=== PATIENT | female | born 1950 | race Hispanic/Latino ===

== ENCOUNTER → 2018-01-05 | Outpatient (CLI) | payer MEDICARE, OTHER | END | disposition home or self-care (01) | LOC: RAH 08:31 | PROVIDERS: ATTEND Internal Medicine | DX: K76.0 Fatty (change of) liver, not elsewhere classified (principal); R16.0 Hepatomegaly, not elsewhere classified | CPT/HCPCS: 76700; 76856 ==

== ENCOUNTER → 2020-05-27 | Outpatient (CLI) | payer OTHER ==
[~2020-05-27] VITALS: Ht 144.8 cm; Wt 101.6 kg
[~2020-05-27] MED LIST: REGADENOSON 0.4 MG/5 ML PF SYG IVP SCH
== END | disposition home or self-care (01) ==
LOC: SHCH 07:37
PROVIDERS: ATTEND Internal Medicine Cardiovascular Disease
DX: R06.00 Dyspnea, unspecified (principal); R06.02 Shortness of breath; I10 Essential (primary) hypertension
CPT/HCPCS: 78452; 93017; 96374; A9500 ×2; J2785

== ENCOUNTER 2021-05-14 09:47 | Day surgery (SDC) | payer OTHER ==
[~2021-05-14] VITALS: Ht 149.9 cm; Wt 99.3 kg
[2021-05-14] VITALS (15 sets, daily range): BP systolic 110–150; BP diastolic 22–83
[2021-05-14] MEDS ORDERED: 0.9%NACL 1000ML 1,000 ML IV ONE (10:32)
[2021-05-14] MEDS ORDERED: OMEP40CA21 PO (11:19)
[2021-05-14] MEDS ORDERED: ASPI-1197 PO (11:19)
[2021-05-14] MEDS ORDERED: IOHEXOL-350 50ML VIAL IV ONE (11:58)
[2021-05-14] MEDS ORDERED: PROPOFOL 10 MG/ML 20ML VIAL IV ONE (12:38)
[2021-05-14] MEDS ORDERED: SUCCINYLCHOLINE 200MG/10ML SYR ONE (12:39)
[2021-05-14] MEDS ORDERED: EPHEDRINE SULFATE 50 MG/ML AMPULE ONE (13:08)
[2021-05-14] MEDS ORDERED: LACTATED RINGERS 1000ML 1,000 ML IV ONE (13:53)
== END 2021-05-14 15:30 | disposition home or self-care (01) ==
LOC: ENDO 09:47 → DAH 09:47 → ENDO 15:30
PROVIDERS: ATTEND Internal Medicine Gastroenterology
DX: R93.2 Abnormal findings on diagnostic imaging of liver and biliary tract (principal); Z20.822 Contact with and (suspected) exposure to COVID-19; K80.50 Calculus of bile duct without cholangitis or cholecystitis without obstruction; I10 Essential (primary) hypertension; E78.5 Hyperlipidemia, unspecified; E11.9 Type 2 diabetes mellitus without complications; E66.01 Morbid (severe) obesity due to excess calories; E03.9 Hypothyroidism, unspecified; F32.9 Major depressive disorder, single episode, unspecified; M19.90 Unspecified osteoarthritis, unspecified site; F41.9 Anxiety disorder, unspecified; Z90.49 Acquired absence of other specified parts of digestive tract; Z79.82 Long term (current) use of aspirin; Z79.84 Long term (current) use of oral hypoglycemic drugs; Z79.01 Long term (current) use of anticoagulants; Z79.899 Other long term (current) drug therapy; Z68.41 Body mass index [BMI] 40.0-44.9, adult
CPT/HCPCS: 43264; 43274; 74328; 82948 ×2; 87635; A4215 ×2; A4221; A4222; A4223; A4606; A4657; A4663; C1769; C1773; C2625 ×2; C9803; J0330; J2704; J3490; J7030; J7120; Q9967; 74330